=== PATIENT | female | born 1985 | race African-American/Black ===

== ENCOUNTER 2024-03-18 12:10 | Outpatient (CLI) | payer OTHER ==
--- NOTE | 2024-03-18 14:24 | XRAY Report ---
PROCEDURE: Chest 2V INDICATIONS: CHEST TIGHTNESS TECHNIQUE: 2 views of the chest were acquired. COMPARISON: None. FINDINGS: Surgical changes and devices: None. Lungs and pleura: No dense consolidation or pleural effusion Mediastinum: Normal heart size Bones and chest wall: Unremarkable IMPRESSION: No acute radiographic abnormality. Reviewed by: Giorgi Velázquez MD on 03/18/2024 2:22 PM PDT Approved by: Giorgi Velázquez MD on 03/18/2024 2:22 PM PDT Station ID: [id number]
== END 2024-03-18 13:30 | disposition home or self-care (01) ==
LOC: DI.N 12:10
PROVIDERS: ATTEND Physician Assistant Medical
DX: R07.89 Other chest pain (principal)

== ENCOUNTER 2024-03-20 11:17 | Emergency (ER) | payer OTHER ==
[2024-03-20 12:02] LABS: BASOPHILS % (AUTO) 0.8 %; EOSINOPHILS % (AUTO) 0.8 %; HCT - HEMATOCRIT 39.2 % (37.0-47.0); HGB - HEMOGLOBIN 11.9 g/dL (12.0-16.0); LYMPHOCYTES % (AUTO) 56.8 %; MEAN CORPUSCULAR HEMOGLOBIN 25.9 pg (27.0-31.0); MEAN CORPUSCULAR HGB CONC 30.4 g/dL (32.0-36.0); MEAN CORPUSCULAR VOLUME 85.2 fL (81.0-99.0); MEAN PLATELET VOLUME 10.2 fL (7.9-10.8); MONOCYTES # (AUTO) 0.4 10^3/uL (0.0-1.0); MONOCYTES % (AUTO) 7.9 %; NEUTROPHILS # (AUTO) 1.8 10^3/uL (1.5-6.6); NEUTROPHILS % (AUTO) 33.7 %; PLT - PLATELET COUNT 302 10^3/uL (130-450); RED CELL DISTRIBUTION WIDTH 13.8 % (12.0-15.0); WHITE BLOOD COUNT 5.2 x10^3/uL (4.8-10.8)
[2024-03-20 12:19] LABS: ALBUMIN 4.4 g/dL (3.2-5.5); ALBUMIN/GLOBULIN RATIO 1.2 (1.0-2.2); ALKALINE PHOSPHATASE 93 IU/L (42-121); ALT ALANINE AMINOTRANSFERASE 8 IU/L (10-60); AST ASPARTATE AMINOTRANSFERASE 14 IU/L (10-42); BILIRUBIN,TOTAL 0.4 mg/dL (0.2-1.0); BUN - BLOOD UREA NITROGEN 14 mg/dL (6-20); CALCIUM 9.8 mg/dL (8.5-10.3); CARBON DIOXIDE - CO2 28 mmol/L (21-32); CHLORIDE 104 mmol/L (101-111); CREATININE 0.8 mg/dL (0.6-1.3); GFR - MDRD 98 (>89); GLUCOSE 98 mg/dL (74-104); LIPASE 57 U/L (11-82); POTASSIUM 4.5 mmol/L (3.5-4.5); SODIUM 135 mmol/L (135-145); TOTAL PROTEIN 8.2 g/dL (6.4-8.9)
--- NOTE | 2024-03-20 12:21 | XRAY Report ---
PROCEDURE: Chest 1V INDICATIONS: Chest pain TECHNIQUE: One view of the chest was acquired. COMPARISON: 03/18/2024. FINDINGS: Surgical changes and devices: None. Lungs and pleura: No pleural effusions or pneumothorax. Lungs are clear. Mediastinum: Mediastinal contours appear normal. Heart size is normal. Bones and chest wall: No suspicious bony lesions. Overlying soft tissues appear unremarkable. IMPRESSION: No acute cardiopulmonary process. Reviewed by: Malachi Black MD on 03/20/2024 12:20 PM PDT Approved by: Malachi Black MD on 03/20/2024 12:20 PM PDT Station ID: [id number]
[2024-03-20 12:22] LABS: TROPONIN I HIGH SENSITIVITY < 2.3 ng/L (2.3-14.8)
--- NOTE | 2024-03-20 14:12 | ED Physician Documentation ---
PD HPI CHEST PAIN - Stated complaint Stated Complaint: CHEST PRESSURE - Chief complaint Chief Complaint: Cardiac - History obtained from History obtained from: Patient - History of Present Illness Timing - onset: How many days ago (few) Timing - onset during: Other (occurring radomly with feeling of dyspnea/pressure left chest for just fleeting few seconds.). No: Light activity, Exertion Timing - duration: Days (few days has notd it, but the sensation is just seconds or so at a time.) Timing - details: Abrupt onset, Intermittant Quality: Pressure, Tightness Location: Left chest Associated symptoms: Shortness of air, Other (recent flu like illness 1-2 months ago and had been told it was needing time to recover.). No: Nausea, Feeling faint / dizzy Similar symptoms before: Has not had sx before Review of Systems Constitutional: reports: Fatigue. denies: Fever, Chills, Myalgias Nose: denies: Rhinorrhea / runny nose, Congestion Throat: denies: Sore throat Cardiac: denies: Palpitations, Pedal edema, Calf pain Respiratory: reports: Dyspnea. denies: Cough Neurologic: reports: Generalized weakness PD PAST MEDICAL HISTORY - Past Medical History Past Medical History: No Cardiovascular: None Respiratory: None Neuro: None Endocrine/Autoimmune: None GI: None CLIENT SOLUTIONS SPECIALIST: None : None HEENT: None Psych: None Musculoskeletal: None Derm: None - Past Surgical History Past Surgical History: No - Present Medications Home Medications: Ambulatory Orders Medication Instructions Recorded Confirmed Albuterol Sulf [Ventolin Hfa 2 - 3 puffs INH QID #1 each 03/20/24 Inhaler] dexAMETHasone [Decadron] 4 mg PO DAILY #5 tablet 03/20/24 - Allergies Allergies/Adverse Reactions: Allergies Allergy/AdvReac Type Severity Reaction Status Date / Time No Known Drug Allergies Allergy Verified 03/20/24 11:35 - Social History Does the pt smoke?: No Smoking Status: Never smoker Does the pt drink ETOH?: No Does the pt have substance abuse?: No - Immunizations Immunizations are current?: Yes - POLST Patient has POLST: No PD ED PE NORMAL - Vitals Vital signs reviewed: Yes - General General: Alert and oriented X 3, No acute distress, Well developed/nourished - HEENT HEENT: Pharynx benign - Neck Neck: Supple, no meningeal sign, No adenopathy - Cardiac Cardiac: RRR, No murmur - Respiratory Respiratory: No respiratory distress, Clear bilaterally - Abdomen Abdomen: Soft, Non tender - Extremities Extremities: No edema, No calf tenderness / cord Results - Vitals Vitals: Oxygen O2 Source Room air - Labs Labs: Laboratory Tests 03/20/24 03/20/24 11:56 11:56 WBC 5.2 RBC 4.60 Hgb 11.9 L Hct 39.2 MCV 85.2 MCH 25.9 L MCHC 30.4 L RDW 13.8 Plt Count 302 MPV 10.2 Neut # (Auto) 1.8 Lymph # (Auto) 3.0 [place] # (Auto) 0.4 Eos # (Auto) 0.0 Baso # (Auto) 0.0 Absolute Nucleated RBC 0.00 Nucleated RBC % 0.0 Sodium 135 Potassium 4.5 Chloride 104 Carbon Dioxide 28 Anion Gap 3.0 L BUN 14 Creatinine 0.8 Estimated GFR (MDRD) 98 Glucose 98 Calcium 9.8 Total Bilirubin 0.4 AST 14 ALT 8 L Alkaline Phosphatase 93 Troponin I High Sens < 2.3 L Total Protein 8.2 Albumin 4.4 Globulin 3.8 Albumin/Globulin Ratio 1.2 Lipase 57 PD Medical Decision Making - ED course Complexity details: reviewed results (having chest discomfort/ dyspnea randomly. Recent viral illness month or two ago. Consider cardiomyopathy. ECG here is okay and trop negative. I was able to get ECHO and it showed normal EF and global function by raw data review by me. Report not yet completed. ), considered differential (intermittent feeling of tightness/dyspnea in left chest over past few days, lasts seconds. No edema, cough, URI. No pattern with activity, eating, position. Had URI symptoms about a month or so ago, presumed flu. ), d/w patient ED course: presume bronchial inflammation causing episodic dyspnea. Has had more consistent symptoms. No signs of heart dysfunction with normal CXR, ECHO, Trop and ECG. No pneumonia nor signs CHF. PERC negative. Departure - Departure Disposition: 01 Home, Self Care Clinical Impression: Dyspnea Condition: Stable Record reviewed to determine appropriate education?: Yes Instructions: ED Dyspnea Shortness of Breath Follow-Up: RONALDO MENENDEZ FNP [Primary Care Provider] - Prescriptions: dexAMETHasone [Decadron] 4 mg PO DAILY #5 tablet Albuterol Sulf [Ventolin Hfa Inhaler] 2 - 3 puffs INH QID #1 each Comments: I have the preliminary on the echocardiogram results and it appears to have normal heart function. I can call you if the final report has anything abnormal to it. Your blood test looking for signs of heart injury and heart failure were negative and your ultrasound preliminary appears normal. Your chest x-ray also looked clear without any signs of obvious pneumonia or fluid buildup or heart failure. At this point it sounds likely to be reactive airway or inflammation. We can try combination of an inhaler 2 to 3 puffs 4 times daily regularly for the next couple of weeks combined with a steroid orally for the next 5 days to decrease airway inflammation. See how much better you are with those. Follow-up with your primary care. I sent your prescriptions to your preferred pharmacy. Thank you for your patience with us today. Forms: PCP List Discharge Date/Time: 03/20/24 17:09
[2024-03-20 14:27] VITALS: O2SAT 100
[2024-03-20] MEDS: dexAMETHasone 4 MG TABLET PO STA (14:55)
[2024-03-20] MEDS: ALBUTEROL 1 PUFF INH STA (15:01)
[2024-03-20 17:16] VITALS: BP 121/76
== END 2024-03-20 17:09 | disposition home or self-care (01) ==
LOC: ED 11:17
DX: R06.00 Dyspnea, unspecified (principal)
CPT/HCPCS: 36415; 71045; 80053; 83690; 84484; 85025; 93005; 93307; 94640; 94664; 99284; J8540